=== PATIENT | male | born 2000 | race Caucasian/White ===

== ENCOUNTER → 2020-05-15 | Outpatient (CLI) | payer OTHER ==
--- NOTE | 2020-05-16 13:33 | KCIC ---
EXAMINATION: MRI RIGHT UPPER EXTREMITY JOINT WITHOUT CONTRAST INDICATIONS: Elbow dislocation 04/05/2020, medial pain, limited range of motion TECHNIQUE: Multiplanar multisequence MRI of the right elbow was obtained without contrast. COMPARISON: Right elbow radiograph 04/07/2020 FINDINGS: BONES AND CARTILAGE: There is a nondisplaced radial neck fracture with a low signal fracture line ext ensive marrow edema. Mild surrounding periosteal reaction. There is marrow edema in the capitellum an d lateral epicondyle, as well as in the medial epicondyle. Alignment is normal. Cartilage is grossly intact. LIGAMENTS: The ulnar collateral ligament is not this lies proximally, compatible complete tear. The r adial collateral ligament and lateral ulnar collateral ligament appear intact. The annular ligament a ppears disrupted. TENDONS AND MUSCLES: There is a partial tear of the common flexor tendon origin. Common extensor tend on origin is intact. Mild increased signal of the distal biceps and brachialis tendons without discre te defect, consistent with low-grade partial tears. Mild muscle strains of the brachialis, brachiorad ialis, supinator, and flexor digitorum superficialis muscles. Triceps tendon is intact. OTHER: Mild increased signal in the ulnar nerve as it courses around the medial epicondyle. Median an d radial nerves are normal in appearance. There is a small joint effusion. Mild subcutaneous edema al marilou the medial aspect of the elbow. IMPRESSION: 1. Healing nondisplaced radial neck fracture. Contusions in the medial and lateral humeral epicondyle s. 2. Complete tear of the ulnar collateral ligament proximally. 3. Partial tear of the common flexor tendon origin. 4. Low-grade partial tears of the distal biceps and brachialis tendons, which are predominantly intac t. Strain of the brachialis, brachioradialis, supinator, and flexor digitorum superficialis muscles. 5. Small joint effusion. Electronically signed by: Suzan Jaimes MD (05/16/2020 11:25 AM) [id number]
== END ==
LOC: KCIC MRI 15:01
PROVIDERS: ATTEND Orthopaedic Surgery
DX: S53.104A Unspecified dislocation of right ulnohumeral joint, initial encounter (principal); S63.649A Sprain of metacarpophalangeal joint of unspecified thumb, initial encounter; M25.431 Effusion, right wrist; X58.XXXA Exposure to other specified factors, initial encounter; Y93.9 Activity, unspecified; Y92.89 Other specified places as the place of occurrence of the external cause; Y99.8 Other external cause status
CPT/HCPCS: 73221